=== PATIENT | female | born 1970 | race Caucasian/White ===

== ENCOUNTER 2017-10-17 17:39 | Emergency (ER) | payer MEDICAID ==
--- NOTE | 2017-10-17 17:46 | ED Physician Chart ---
ED Chief Complaint/HPI - Patient Information Date Seen:: 10/17/17 Time Seen:: 17:45 Chief Complaint:: Head trauma History of Present Illness:: 47 yo female slipped and fell backward hitting her head on the edge of a big plate, which incurred a scalp laceration on the right occipital area with oozing of blood. She denied N/V or loss of consciousness. She walked to ER with her fiance. ED Review of Systems - Review of Systems General/Constitutional: No fever Skin: Skin lesions Head: Headache Eyes: No pain ENT: No nasal drainage Neck: No neck pain Cardio Vascular: No chest pain Pulmonary: No SOB GI: No nausea, No vomiting G/U: No dysuria Musculoskeletal: No bone or joint pain Psychiatric: No prior psych history Neurological: No focal symptoms ED Past Medical History - Past Medical History Past Medical History: HTN, Other () Social History: Smoker, No Alcohol, Illicit Drug Use (marijuana, methamphetamine ) Surgical History: (x 2) ED Physical Exam - Physical Examination General/Constitutional: Awake Other Head comments:: 3.5 cm long laceration on the right occipital area with active oozing of blood Eyes: PERRL Skin: No ecchymosis ENMT: External ears, nose nl Neck: Nontender Respiratory: Clear to Auscultation Cardio Vascular: RRR, No murmur, gallop, rubs, NL S1 S2 GI: No tenderness/rebounding/guarding Extremities: normal strength in all extremities Neuro/Psych: No focal deficits ED Labs/Radiology/EKG Results - Radiology Results Results: CT head: no acute intracranial hemorrhage ED Assessment - Assessment General Assessment: Scalp laceration Head trauma Assessment/Comments:: Repair of laceration CT head without contrast TDap Rocephin IM Ciprofloxacin 500mg bid D/c home F/u PCP or return to ER if symptoms worsen F/u PCP for myla removal in 10-14 days Wound Length: 3.5 cm Prep/Irrigation:: Cleaned with NS, hydrogen peroxide, NS and betadine. 5 myla were placed to close the scalp laceration. Hemostasis was achieved. Patient tolerated the procedure well. ED Septic Shock - . Is Septic Shock (SBP<90, OR Lactate>4 mmol\L) present?: No ED Reassessment (Disposition) - Reassessment Reassessment Condition:: Improved - Patient Disposition Discharge/Transfer:: Home ED Discharge Plan - Patient Disposition Admit/Discharge/Transfer: PT DISCHARGED HOME Condition at Disposition: Stable Instructions: Laceration Care, Adult
[2017-10-17] MEDS ORDERED: Bacitracin pkt 1 gm Pkt TP ONE (18:13)
[2017-10-17] MEDS ORDERED: Bacitracin pkt 1 gm Pkt TP STA (18:26)
--- NOTE | 2017-10-18 09:05 | Diagnostic Imaging Report ---
Head CT without intravenous contrast Indication: Trauma Comparison: None Technique: Axial images were obtained from the vertex to the skull base without IV contrast. Coronal reconstructions were made. Total DLP: 870, [id number] FINDINGS: Images of the brain obtained without contrast demonstrate no acute hemorrhage. No mass lesions identified. The ventricles and basal cisterns are patent. The henry-white matter differentiation is preserved. There is no mass effect or midline shift. No skull fractures identified. There are subcutaneous myla of the right posterior scalp with soft tissue swelling in this region. The paranasal sinuses are clear. IMPRESSION: Right posterior scalp injury. No evidence of a skull fracture. No acute intracranial abnormality.
== END 2017-10-17 19:11 | disposition home or self-care (01) ==
LOC: ER 17:39
DX: S01.01XA Laceration without foreign body of scalp, initial encounter (principal); W22.8XXA Striking against or struck by other objects, initial encounter; Y93.89 Activity, other specified; Y92.89 Other specified places as the place of occurrence of the external cause; Y99.8 Other external cause status; I10 Essential (primary) hypertension
CPT/HCPCS: 99284; 96372; 12002; 70450; 90715; J0696; A4217; J2001; Z7502; Z7610